=== PATIENT | female | born 2005 | race Two or more races ===

== ENCOUNTER 2024-10-08 21:12 | Observation (INO) | payer MEDICAID, SELFPAY ==
[2024-10-08] VITALS (7 sets, daily range): BP systolic 88–157; BP diastolic 48–89; PULSE 80–104; RESP 18–100; TEMP 36.9; BMI 45.4
[2024-10-08 22:07] LABS: Collection Type, Urine Clean Catch
[2024-10-08 22:08] LABS: Basophils % (Auto) 0 % (0-2.5); Eosinophils # (Auto) 0.1 Thou/mm3 (0.0-0.5); Eosinophils % (Auto) 1 % (0-10); Hematocrit 30.4 % (36.0-46.0); Hemoglobin 10.3 g/dL (12.0-16.0); Immature Granulocytes % (Auto) 1 % (0-0); Immature Granulocytes Auto 0.05 Thou/mm3 (0.00-0.00); Lymphocytes # (Auto) 1.4 Thou/mm3 (1.0-4.8); Lymphocytes % (Auto) 16 % (10-50); Mean Corpuscular HGB Conc 33.9 g/dl (31.0-37.0); Mean Corpuscular Hemoglobin 28.1 pg (25.0-35.0); Mean Corpuscular Volume 83 fL (80-100); Monocytes # (Auto) 0.8 Thou/mm3 (0.0-0.8); Monocytes % (Auto) 10 % (0-12); Neutrophils # (Auto) 6.1 Thou/mm3 (1.8-7.7); Neutrophils % (Auto) 73 % (37-80); Nucleated Red Blood Cell % 0 /100 WBC (0); Platelet Count 285 Thou/mm3 (140-440); RDW Standard Deviation 44.7 fL (36.4-46.3); Red Blood Count 3.66 Miln/mm3 (4.00-5.20); White Blood Count 8.4 Thou/mm3 (3.6-11.0)
[2024-10-08 22:11] LABS: Bilirubin,Urine Negative (Negative); Blood,Urine 1+ (Negative); Clarity,Urine Turbid (Clear/Hazy); Color,Urine Lt-Yellow (Lt Yel-Yel); Glucose, Urine Negative (Negative); Ketones,Urine Negative (Negative); Leukocyte Esterase,Urine Negative (Negative); Nitrite,Urine Negative (Negative); Protein,Urine Negative (Neg - Trace); RBC,Urine 40 /hpf (0-3); Specific Gravity,Urine 1.014 (1.001-1.035); Squamous Epithelial Cell,Urine 5 /hpf (0-5); Urobilinogen,Urine Negative mg/dL (0.0-1.0); WBC,Urine 3 /hpf (0-5)
[2024-10-08 22:25] LABS: Fibrinogen 446 mg/dL (175-375); INR 0.9 (0.9-1.3); Prothrombin Time 9.9 Seconds (9.0-12.2)
[2024-10-08 22:34] LABS: Alanine Aminotransferase 14 U/L (10-49); Albumin, Serum 3.5 gm/dL (3.5-5.0); Albumin/Globulin Ratio 1.5 (1.2-2.2); Alkaline Phosphatase 139 U/L (46-116); Anion Gap 11 (7-16); Aspartate Amino Transferase 13 U/L (0-34); BUN/Creatinine Ratio 16 Ratio (12-20); Bilirubin,Total 0.3 mg/dL (0.3-1.2); Blood Urea Nitrogen 8 mg/dL (9-23); Calcium (Corrected) 9.4 mg/dL (8.5-10.1); Carbon Dioxide 20.5 mMol/L (20.0-31.0); Chloride 108 mMol/L (98-107); Creatinine (Component) 0.5 mg/dL (0.6-1.3); Estimated Creatinine Clearance 211.1 mL/min (>60); Globulin 2.3 gm/dL (2.3-3.5); Glucose 101 mg/dL (74-106); Osmolality,Calculated 275 (275-295); Potassium 3.2 mMol/L (3.4-5.1); Sodium 139 mMol/L (136-145); Total Protein 5.8 gm/dL (5.7-8.2); Uric Acid 3.8 mg/dL (3.1-7.8); eGFR > 60 See Note
== END 2024-10-08 23:00 | disposition home or self-care (01) ==
PROVIDERS: Admitting Provider Student in an Organized Health Care Education/Training Program; Visit Provider Student in an Organized Health Care Education/Training Program
DX: O26.893 Other specified pregnancy related conditions, third trimester (principal); Z3A.36 36 weeks gestation of pregnancy; R03.0 Elevated blood-pressure reading, without diagnosis of hypertension
CPT/HCPCS: 36415; 59899; 80053; 81001; 84550; 85025; 85384; 85610; 85730; G0378

== ENCOUNTER 2024-10-11 14:12 | Observation (INO) | payer MEDICAID, SELFPAY ==
[2024-10-11] VITALS (24 sets, daily range): BP systolic 105–129; BP diastolic 56–67; PULSE 77–102; RESP 18–99; TEMP 36.8; O2SAT 96–98; BMI 44.9
[2024-10-11 15:44] LABS: Basophils % (Auto) 0 % (0-2.5); Eosinophils % (Auto) 0 % (0-10); Hematocrit 31.5 % (36.0-46.0); Hemoglobin 10.7 g/dL (12.0-16.0); Immature Granulocytes % (Auto) 1 % (0-0); Immature Granulocytes Auto 0.05 Thou/mm3 (0.00-0.00); Lymphocytes # (Auto) 1.2 Thou/mm3 (1.0-4.8); Lymphocytes % (Auto) 13 % (10-50); Mean Corpuscular Hemoglobin 28.3 pg (25.0-35.0); Mean Corpuscular Volume 83 fL (80-100); Monocytes # (Auto) 0.8 Thou/mm3 (0.0-0.8); Monocytes % (Auto) 9 % (0-12); Neutrophils # (Auto) 6.9 Thou/mm3 (1.8-7.7); Neutrophils % (Auto) 77 % (37-80); Nucleated Red Blood Cell % 0 /100 WBC (0); Platelet Count 285 Thou/mm3 (140-440); RDW Standard Deviation 44.3 fL (36.4-46.3); Red Blood Count 3.78 Miln/mm3 (4.00-5.20); White Blood Count 8.9 Thou/mm3 (3.6-11.0)
[2024-10-11 15:57] LABS: Creatinine,Random Urine 70 mg/dL (30-125); Protein Total, Random Urine 19 mg/dL (1-14)
[2024-10-11 16:05] LABS: Alanine Aminotransferase 11 U/L (10-49); Albumin, Serum 3.6 gm/dL (3.5-5.0); Albumin/Globulin Ratio 1.5 (1.2-2.2); Alkaline Phosphatase 144 U/L (46-116); Anion Gap 10 (7-16); Aspartate Amino Transferase 14 U/L (0-34); BUN/Creatinine Ratio 18 Ratio (12-20); Bilirubin,Total 0.4 mg/dL (0.3-1.2); Blood Urea Nitrogen 7 mg/dL (9-23); Calcium 9.4 mg/dL (8.3-10.6); Calcium (Corrected) 9.7 mg/dL (8.5-10.1); Carbon Dioxide 22.5 mMol/L (20.0-31.0); Chloride 108 mMol/L (98-107); Creatinine (Component) 0.4 mg/dL (0.6-1.3); Estimated Creatinine Clearance 262.3 mL/min (>60); Globulin 2.4 gm/dL (2.3-3.5); Glucose 88 mg/dL (74-106); LDH (Lactate Dehydrogenase) 171 U/L (120-246); Osmolality,Calculated 276 (275-295); Potassium 3.2 mMol/L (3.4-5.1); Sodium 140 mMol/L (136-145); Uric Acid 3.7 mg/dL (3.1-7.8); eGFR > 60 See Note
[2024-10-11 17:00] LABS: Fibrinogen 455 mg/dL (175-375); INR 0.9 (0.9-1.3); Partial Thromboplastin Time 25.2 Seconds (22.0-36.0)
== END 2024-10-11 17:40 | disposition home or self-care (01) ==
PROVIDERS: Admitting Provider Student in an Organized Health Care Education/Training Program; Visit Provider Student in an Organized Health Care Education/Training Program
DX: O26.893 Other specified pregnancy related conditions, third trimester (principal); R03.0 Elevated blood-pressure reading, without diagnosis of hypertension; Z3A.36 36 weeks gestation of pregnancy
CPT/HCPCS: 36415; 59025; 59899; 80053; 82570; 83615; 84156; 84550; 85025; 85384; 85610; 85730

== ENCOUNTER 2024-10-16 13:59 | Outpatient (CLI) | payer MEDICAID, SELFPAY ==
[2024-10-16] VITALS (9 sets, daily range): BP systolic 111–118; BP diastolic 57–63; PULSE 76–90; RESP 18–97; TEMP 37.2; O2SAT 97–98; BMI 44.8
== END 2024-10-16 14:58 | disposition home or self-care (01) ==
LOC: S4S1 14:02 → S4SX 14:02
PROVIDERS: Referring Provider Student in an Organized Health Care Education/Training Program; Visit Provider Student in an Organized Health Care Education/Training Program
DX: Z34.83 Encounter for supervision of other normal pregnancy, third trimester (principal); Z36.89 Encounter for other specified antenatal screening; Z3A.37 37 weeks gestation of pregnancy
CPT/HCPCS: 59025

== ENCOUNTER 2024-10-19 14:07 | Outpatient (CLI) | payer MEDICAID, SELFPAY ==
[2024-10-19] VITALS (14 sets, daily range): BP systolic 97–120; BP diastolic 53–72; PULSE 80–99; RESP 20–97; TEMP 36.4; O2SAT 86–98; BMI 44.9
[2024-10-19 14:59] LABS: Collection Type, Urine Clean Catch
--- NOTE | 2024-10-19 15:05 | PD.LDTRIAGE2 ---
Documentation for date of: 10/19/24 Hx History Provider: Mamadou Lemus Attending Provider: Mamadou Lemus : 2 Term: 1 : 0 Number of Living Children: 1 Abortions: Spontaneous & Elective: 0 # of Vaginal Deliveries:: 0 Hx Section: Yes Hx Vaginal Delivery Post : No Gestation Info Final BHAVANA: 11/15/24 Gestational Age (weeks): 35 Gestational Age (days): 4 Complaint Complaint Complaint: DENIES HEADACHES, NO VISUAL CHANGES OR EPIGASTRIC DISTRESS Medical History Medical History Medical History: NO HX OF DIABETES OR HEART DISEASE insurance marketing rep Systems Assessment Systems Assessment Systems With in Normal Limits: Yes (NO EXCEPTION) Contractions Evaluation Contractions Contraction Frequency: OCCASIONAL Contraction Duration: 20 SECONDS Resting Tone Palpate: Soft Vaginal Bleeding Vaginal Bleeding Amount: None Heart Monitoring Heart Rate Assessment Monitor Mode: External FHR Baseline: 135 Variability: Moderate Accelerations: 15x15 FHR Pattern Category: Category l Movement Reported: Yes NST Reactive: Yes WNL for GA: No Assessment Comment: REACTIVE NST PATTERN Social risk screen Social Risk Screening Observed or verbalized signs of abuse or neglect: No Head Up Operator Helper Referral: No
[2024-10-19 15:09] LABS: Bilirubin,Urine Negative (Negative); Blood,Urine 2+ (Negative); Clarity,Urine Turbid (Clear/Hazy); Color,Urine Lt-Yellow (Lt Yel-Yel); Glucose, Urine Negative (Negative); Ketones,Urine 2+ (Negative); Leukocyte Esterase,Urine Positive (Negative); Nitrite,Urine Negative (Negative); Protein,Urine Trace (Neg - Trace); RBC,Urine 164 /hpf (0-3); Specific Gravity,Urine 1.021 (1.001-1.035); Squamous Epithelial Cell,Urine 19 /hpf (0-5); Urobilinogen,Urine Negative mg/dL (0.0-1.0); WBC,Urine 7 /hpf (0-5)
--- NOTE | 2024-10-19 15:09 | PC.NURSE ---
1506 dc instructions reviewed, labor precautions, preeclampsia precautions, kick counts, copies given, pt agrees/understands.
== END 2024-10-19 15:07 | disposition home or self-care (01) ==
LOC: S4S1 14:12 → S4SX 14:13
PROVIDERS: Referring Provider Obstetrics & Gynecology; Visit Provider Obstetrics & Gynecology
DX: O26.893 Other specified pregnancy related conditions, third trimester (principal); Z3A.37 37 weeks gestation of pregnancy; R03.0 Elevated blood-pressure reading, without diagnosis of hypertension
CPT/HCPCS: 59025; 81001

== ENCOUNTER 2024-10-22 02:12 | Inpatient (IN) | payer MEDICAID, SELFPAY ==
[2024-10-22] VITALS (17 sets, daily range): BP systolic 109–133; BP diastolic 61–89; PULSE 66–113; RESP 16–98; TEMP 36.1–36.8; O2SAT 97–100; BMI 27.3
--- NOTE | 2024-10-22 02:44 | XR_ITS ---
Examination: Complete OB ultrasound greater than 14 weeks Date and time of exam: October 22, 2024 at 0315 hrs. Indications: Patient fell October 21, 2024 with injury to the pelvis Findings: Viable intrauterine single fetus with single amniotic sac presentation cephalic Cardiac motion 160 BPM Placenta anterior fundal grade 3 Umbilical cord insertion 3 vessel seen Amniotic fluid index 3.6 cm spine anterior Ovaries obscured by the fetus. Composite estimated gestational age based on BPD, head circumference, abdominal circumference, femur length is 38 weeks 0 days Estimated weight 3387 g. Survey of intracranial anatomy, spinal anatomy, abdominal anatomy, four-chamber heart performed with no abnormalities identified. Impression: Viable intrauterine gestation cephalic presentation.
[2024-10-22] MEDS: RINGERS LACTATED 1000 ML 1,000 ML 999 ML IV (03:00)
[2024-10-22 03:04] LABS: Basophils % (Auto) 0 % (0-2.5); Eosinophils % (Auto) 0 % (0-10); Hematocrit 33.6 % (36.0-46.0); Hemoglobin 11.2 g/dL (12.0-16.0); Immature Granulocytes % (Auto) 1 % (0-0); Immature Granulocytes Auto 0.07 Thou/mm3 (0.00-0.00); Lymphocytes # (Auto) 1.6 Thou/mm3 (1.0-4.8); Lymphocytes % (Auto) 17 % (10-50); Mean Corpuscular HGB Conc 33.3 g/dl (31.0-37.0); Mean Corpuscular Hemoglobin 27.9 pg (25.0-35.0); Mean Corpuscular Volume 84 fL (80-100); Monocytes # (Auto) 0.9 Thou/mm3 (0.0-0.8); Monocytes % (Auto) 10 % (0-12); Neutrophils # (Auto) 6.7 Thou/mm3 (1.8-7.7); Neutrophils % (Auto) 72 % (37-80); Nucleated Red Blood Cell % 0 /100 WBC (0); Platelet Count 277 Thou/mm3 (140-440); RDW Standard Deviation 45.1 fL (36.4-46.3); Red Blood Count 4.02 Miln/mm3 (4.00-5.20); White Blood Count 9.3 Thou/mm3 (3.6-11.0)
[2024-10-22 05:11] LABS: ROM Kit Lot # 57807112
[2024-10-22 05:12] LABS: ROM Swab Mixed By: DAVIH1; Rupture of Fetal Membranes Positive (Negative); Swb Mxed in Solvent 1 min? Yes
--- NOTE | 2024-10-22 05:54 | PD.LDHP ---
Documentation for date of: 10/22/24 OB Labor/Induct. HPI History of Present Illness : 2 Term pregnancies: 1 pregnancies: 0 Living children: 1 History of Abortions: Spontaneous and Elective: 0 History of sections: Yes (2021) History of : No BHAVANA: 11/05/24 Gestational Age (weeks): 38 Gestational Age (days): 0 History of present illness: 19 yo IUP 38 weeks labor pains and leaking. Prior C/S. Amniosure positive. JUSTIN 4.7. Desires repeat C/S. PNC at [facility]. History of Present Adequate Care: Yes Labs Labs: Negative: Hepatitis B, HIV, Chlamydia, Gonorrhea and Group Beta Strep Review of Systems Review of Systems Narrative Review of Systems: Denies any chest pain, palpitations, shortness of breath or lower ext. pain or swelling. Past Medical History Family History OTHER FAMILY HX: Denies Surgical History SURGICAL: Positive Section (2021) OTHER SURGICAL HX: right breast excision of fibroadenoma 2023, C section 2021 Social History SOCIAL: Denies alcohol, drug use or smoking. Meds Home Medications and Allergies Home Medications ?Medication ?Instructions ?Recorded ?Confirmed ?Type vit no.95-ferrous 1 tab PO .q day 10/16/24 10/22/24 History fumarate 28 mg-folic acid 800 mcg tablet () Allergies Allergy/AdvReac Type Severity Reaction Status Date / Time No Known Allergies Allergy Verified 10/22/24 02:29 OB Exam Physical Exam Vital signs: Temp Pulse Resp BP 97.6 F 98 18 133/86 H 10/22/24 02:32 10/22/24 05:37 10/22/24 02:28 10/22/24 05:37 Routine Respiratory Exam Comments: CTA B/L Routine Cardiovascular Exam Comments: RRR Routine Abdominal Exam Comments: Gravid , term size, old pfanensteil scar noted. Routine Extremities Exam Comments: Non tender or edema. OB Results Labs 10/22/24 02:50 Labs: Short CBC 10/22/24 Range/Units 02:50 WBC 9.3 (3.6-11.0) Thou/mm3 Hgb 11.2 L (12.0-16.0) g/dL Hct 33.6 L (36.0-46.0) % Plt Count 277 (140-440) Thou/mm3 Impressions Impression: IUP 38w0d. Labor SROM Oligohydramnions Prior C/S\ Desires Repeat C/S Informed consent obtained , she was made aware of the risks, complications, alternatives and benefits of the proposed procedure and she agrees.
[2024-10-22] MEDS: ceFAZolin/D5W 2 GM IV 2 GM/100 ML BAG IV (05:58)
[2024-10-22] MEDS: METOCLOPRAMIDE INJ 5 MG/ML VIAL 2 ML 10 MG IVP (05:59)
[2024-10-22] MEDS: FAMOTIDINE INJ 10 MG/ML VIAL 2 ML 20 MG IV (05:59)
[2024-10-22 07:03] LABS: Syphilis Nonreactive (Nonreactive)
--- NOTE | 2024-10-22 07:03 | PRELIM_ITS ---
Obstetric ultrasound. October 22, 2024 0315 hours Clinical history: hx of fall 10/21/24 Comparison: No prior study is available for comparison. Findings: There is a gravid uterus with a live fetus in cephalic presentation of mean gestational age 38 weeks and 0 days (by biometry). cardiac activity is present at a heart rate of 160 beats per minute. The placenta is in anterior fundal location, maturity grade 3. There is no evidence of placenta previa or retroplacental hemorrhage. Amniotic fluid is adequate (JUSTIN = 3.6cm). Estimated weight is 3387 grams+/- 501 grams. Estimated due date by ultrasound is 11/05/2024. Impression: Gravid uterus with a single live fetus in cephalic presentation of mean gestational age 38 weeks 0 days. Other findings as described above. Report Electronically Signed By: Dutch Michelle 10/22/2024 7:03:09 AM [EST]
[2024-10-22] MEDS: OXYTOCIN in NS 20 units 20 UNIT/1,000 ML BAG 125 UNIT IV ×2 (07:35→16:06)
--- NOTE | 2024-10-22 07:39 | PD.LDDS ---
DS: Providers Provider Date of admission: 10/22/24 05:13 Primary care physician: Mamadou Lemus MD Admitting Provider: Amandeep Tony MD Attending Provider on Admission: Amandeep Tony MD Consults: 10/22/24 07:28 Referral Routine Comment: Attending Provider on DC: Amandeep Tony MD Discharging Provider: Amandeep Tony MD DS: Diagnosis Discharge Diagnosis (1) Oligohydramnios delivered: Status: Acute (2) delivery delivered: Status: Acute (3) Endometriosis: Status: Acute Problem List Completed Was Problem List Reviewed/Reconciled?: Yes Summary/Hosp Course Peripartum Data Delivery Method: Low Transverse Procedures: Procedures Operation Date: 10/22/24 06:30 <No data on this case meets the specified criteria> 1: Gender: Male Time Spent with Patient Time attestation: Total time spent providing and/or coordinating discharge services: Exam Vital Signs Temp Pulse Resp BP 97.6 F 98 18 133/86 H 10/22/24 02:32 10/22/24 05:37 10/22/24 02:28 10/22/24 05:37 Discharge Plan Plan Patient Disposition: HOME (Self Care) Patient condition on transfer: Stable Prescriptions/Referrals Prescriptions/Med Rec: New hydrocodone-acetaminophen 5-325 mg tablet 1 tab PO Q6H MDD 4 PRN (Reason: pain) Qty: 20 0RF ibuprofen 600 mg tablet 600 mg PO Q6H PRN (Reason: pain) Qty: 30 0RF No Action PNV cmb#95-ferrous fumarate-FA [] 28 mg iron- 800 mcg tablet 1 tab PO .q day Referrals: Mamadou Lemus MD [Primary Care Provider] - Patient/Caregiver Discharge Instructions Discharge Activity: activity as tolerated Other Discharge Activity Instructions:: Follow up office in [address] [facility] Education Materials: C Section Dc Print Language: Pashto Stand Alone Forms: Renetta Award Info., Patient Portal Info Letter Planned Discharge Date 10/24/24
--- NOTE | 2024-10-22 07:40 | OBDSUM_ITS ---
Data (Johnson) Data Hx Section: Yes (2021) : 2 Para: 1 Term: 1 : 0 : 0 Delivery Data (Johnson) Labor Data ROM Date: 10/22/24 ROM Time: 04:49 Rupture Type: SROM Amniotic Fluid: Clear Delivery Data EDC: 11/05/24 EDC calculated by:: LMP/early US confirmation Labor Onset Stage 1 Date: 10/22/24 Labor Onset Stage 1 Time: 04:49 Labor Onset Stage 2 Date: 10/22/24 Labor Onset Stage 2 Time: 04:49 Delivery Date: 10/22/24 Delivery Time: 06:34 Gestational age (weeks): 38 Gestational age (days): 0 Placenta Delivery Date: 10/22/24 Placenta Delivery Time: 06:35 Delivered by: Amandeep Tony Delivery nurse: Taina Mojica Other staff at delivery: Nursery Nurse Other staff at delivery: Michelle Manjarrez Delivery Method Delivery: Delivery Type: Repeat Presentation: Vertex Position: OT Anesthesia Type Primary Anesthesia: Spinal Placenta Placenta Delivery: Manual Placenta Cultures Obtained: No Placenta Sent for Examination: No Cord Sample: Cord Blood Obtained EBL Estimated blood loss (ml): 800 Umbilical Cord Nuchal Cord: x1 Additional Procedures None Complications Complications: None [place] Data (Johnson) [place] Data Gender: Male Weight Grams: 3540 1 Minute Total: 8 5 Minute Total: 9
[2024-10-22] MEDS: KETOROLAC INJ 30 MG/ML VIAL IVP ×2 (10:24→17:40)
--- NOTE | 2024-10-22 10:24 | ESOP_ITS ---
RE: ROC BHAKTA : 2005 DATE OF OPERATION: 10/22/2024 PREOPERATIVE DIAGNOSES: 1. Intrauterine at 38 weeks. 2. Previous delivery. 3. Early labor. 4. Oligohydramnios. 5. Spontaneous rupture of membranes. POSTOPERATIVE DIAGNOSES: 1. Intrauterine at 38 weeks. 2. Previous delivery. 3. Early labor. 4. Oligohydramnios. 5. Spontaneous rupture of membranes. 6. Endometriosis. PROCEDURE PERFORMED: A repeat low transverse section via Pfannenstiel skin incision. SURGEON: Amandeep Tony DO SPECIAL EFFECTS PERSON: GATO Armas ANESTHESIA: Spinal. ANESTHESIOLOGIST: Cholo Mojica CRNA ESTIMATED BLOOD LOSS: 800 mL. COMPLICATIONS: None. COUNTS: Correct. PATHOLOGY: None. FINDINGS: A live male infant, cephalic presentation, nuchal cord, no amniotic fluid. Apgars, see RN notes. Placenta removed complete and intact. Endometriotic implants on the posterior uterosacral ligaments, ovaries, and the rest of the uterus appeared grossly within normal limits. DESCRIPTION OF PROCEDURE: After proper informed consent was obtained and the patient was made aware of the risks, complications, alternatives, and benefits of the proposed procedure, she was taken to the operating room where she underwent induction of spinal anesthesia. She was prepped and draped in the usual sterile fashion. A timeout was performed. A Pfannenstiel skin incision was made with the scalpel, carried through to the underlying layer of fascia with the Bovie. The fascia was nicked in the midline. The incision extended bilaterally with the Bovie. The inferior aspect of the fascial incision was grasped with José Manuel clamps, elevated. The underlying rectus muscles were dissected off with the Bovie. The rectus muscles were in the midline. The peritoneum entered sharply with the Metzenbaum scissors. The incision was extended superiorly and inferiorly with good visualization of the bladder. The bladder blade was then inserted. The vesicouterine peritoneum was incised transversely, a bladder flap created digitally. The bladder blade was reinserted. The lower uterine segment was incised in transverse fashion with the scalpel. The incision was extended bilaterally digitally. The infant's head delivered. The mouth and nose were suctioned with the bulb suction. The nuchal cord was reduced. The shoulder and body delivered atraumatically. The cord was clamped and cut. The sent off to the waiting pediatric staff. Cord blood and gases were sent. The placenta was then removed manually. The uterus was exteriorized and cleared of all clots and debris. The uterine incision was repaired with #1-0 chromic catgut suture in a running locking fashion. A second layer of same suture was used to imbricate the first layer and obtained excellent hemostasis. The vesicouterine peritoneum was closed with 2-0 chromic catgut suture in a running fashion. The uterus was firm. It was returned to the abdomen. The gutters were cleared of all clots and debris. The peritoneum was closed with #0 chromic catgut suture in a running fashion. The muscle was closed with #0 chromic catgut suture in running fashion. The fascia was closed with #0 Vicryl beginning at each angle and ending in center in a running fashion. Subcutaneous tissue was irrigated with normal saline solution and found to be hemostatic and closed with 2-0 chromic catgut suture in a running fashion. The skin was closed with 4-0 Monocryl. A Dermabond Prineo dressing was applied. A sterile pressure dressing was applied. She tolerated the procedure well. Counts were correct. I discussed with the patient the nature of her condition, the intraoperative findings, expectation for recovery. All questions were answered. DT: 07:38:35 TT: 10:23:00 Ref: [id number] - TID: [id number]
[2024-10-22 12:38] LABS: Basophils % (Auto) 0 % (0-2.5); Eosinophils % (Auto) 0 % (0-10); Hematocrit 32.5 % (36.0-46.0); Hemoglobin 10.9 g/dL (12.0-16.0); Immature Granulocytes % (Auto) 1 % (0-0); Immature Granulocytes Auto 0.08 Thou/mm3 (0.00-0.00); Lymphocytes # (Auto) 1.5 Thou/mm3 (1.0-4.8); Lymphocytes % (Auto) 11 % (10-50); Mean Corpuscular HGB Conc 33.5 g/dl (31.0-37.0); Mean Corpuscular Hemoglobin 28.8 pg (25.0-35.0); Mean Corpuscular Volume 86 fL (80-100); Monocytes % (Auto) 7 % (0-12); Neutrophils # (Auto) 11.1 Thou/mm3 (1.8-7.7); Neutrophils % (Auto) 81 % (37-80); Nucleated Red Blood Cell % 0 /100 WBC (0); Platelet Count 220 Thou/mm3 (140-440); RDW Standard Deviation 46.2 fL (36.4-46.3); Red Blood Count 3.79 Miln/mm3 (4.00-5.20); White Blood Count 13.7 Thou/mm3 (3.6-11.0)
[2024-10-23 00:25] VITALS: BP 113/74; PULSE 90; RESP 24; TEMP 36.8; O2SAT 95
[2024-10-23 04:20] VITALS: BP 112/73; PULSE 78; RESP 22; TEMP 36.8; O2SAT 97
[2024-10-23] MEDS: IBUPROFEN TAB 400 MG TABLET 800 MG PO ×2 (04:43→13:40)
[2024-10-23 07:50] VITALS: BP 114/77; PULSE 92; RESP 18; TEMP 36.9; O2SAT 97
[2024-10-23] MEDS: DOCUSATE SOD 100 MG CAPSULE PO (08:42)
--- NOTE | 2024-10-23 09:21 | PD.LDPPPRG ---
Subjective Subjective Interval history: Delivery type: Patient doing well this morning. No acute complaints. Ambulating, tolerating p.o. and voiding without difficulty. HTN/Pre-Eclampsia screen: No chest pain, shortness of breath, headache, visual changes, epigastric or right upper quadrant pain. Breast-feeding, lochia diminishing. Bowel: Flatus+/ BM+ Exam Vital Signs Temp Pulse Resp BP Pulse Ox O2 Del Method 98.4 F 92 18 114/77 97 Room Air 10/23/24 07:50 10/23/24 07:50 10/23/24 07:50 10/23/24 07:50 10/23/24 07:50 10/23/24 07:50 Constitutional Constitutional: no acute distress Routine HEENT Exam Head: Present normocephalic and atraumatic Eye: Present EOMI and PERRL ENT: Present mucous membranes moist Routine Neck Exam Neck: Present supple and trachea midline Routine Respiratory Exam Respiratory: Present chest non-tender, lungs clear, normal breath sounds and no resp distress Routine Cardiovascular Exam Cardiovascular: Present RRR Routine Abdominal Exam Abdominal: Present soft and normoactive bowel sounds Routine Extremities Exam Extremities: Present full ROM Routine Skin Exam Skin: Present intact, dry and warm Routine Neurological Exam Neurological: Present alert, oriented X3 and CN II-XII intact Routine Psychiatric Exam Psychiatric: Present normal affect and normal thought process Objective Labs 10/22/24 11:50 Labs: Laboratory Results - last 24 hr 10/22/24 11:50 WBC 13.7 H D RBC 3.79 L Hgb 10.9 L Hct 32.5 L MCV 86 MCH 28.8 MCHC 33.5 RDW Std Deviation 46.2 Plt Count 220 D Neut % (Auto) 81 H Lymph % (Auto) 11 [place] % (Auto) 7 Eos % (Auto) 0 Baso % (Auto) 0 Neut # (Auto) 11.1 H Lymph # (Auto) 1.5 [place] # (Auto) 1.0 H Eos # (Auto) 0.0 Baso # (Auto) 0.0 Immature Gran # (Auto) 0.08 H Absolute Nucleated RBC 0.00 Immature Gran % 1 H Nucleated RBC % 0 Assessment & Plan Problem List (1) Oligohydramnios delivered: Status: Acute (2) delivery delivered: Status: Acute Assessment and plan: 1. Continue routine /post-op care 2. Labs reviewed, cbc appropriate 3. Remove dressing/Spencer 4. Encourage to ambulate, shower 5. Encourage PO intake, breast feeding (3) Endometriosis: Status: Acute Time Spent With Patient Time: Total time spent is greater than 50% in coordination of care (as documented) at patient's floor/unit and/or counseling patient:
[2024-10-23 12:00] VITALS: BP 126/85; PULSE 96; RESP 18; TEMP 36.8; O2SAT 97
[2024-10-23 20:39] VITALS: BP 106/72; PULSE 89; RESP 19; TEMP 36.7; O2SAT 97
[2024-10-23] MEDS: ACETAMINOPHEN 325 MG TABLET 650 MG PO (21:20)
[2024-10-24] MEDS: IBUPROFEN TAB 400 MG TABLET 800 MG PO ×2 (01:20→11:01)
[2024-10-24] MEDS: SIMETHICONE 80 MG CHEW PO (01:20)
[2024-10-24 05:09] VITALS: BP 118/73; PULSE 87; RESP 17; TEMP 36.4; O2SAT 98
[2024-10-24 07:36] VITALS: BP 130/83; PULSE 83; RESP 20; TEMP 36.6; O2SAT 97
--- NOTE | 2024-10-24 08:06 | PD.LDPPPRG ---
Subjective Subjective Interval history: Patient is a 19-year-old -0-0-2 postop day #2 status post repeat by Dr Tony. Patient is doing well. She is sitting up pumping breastmilk. She states she cannot latch the baby well as she has flat nipples. She has tried nipple sandhu and this does not work. Patient's pain is controlled her bleeding is minimal she is tolerating a general diet the father the baby is at bedside. Exam Vital Signs Temp Pulse Resp BP Pulse Ox O2 Del Method 97.9 F 83 20 130/83 97 Room Air 10/24/24 07:36 10/24/24 07:36 10/24/24 07:36 10/24/24 07:36 10/24/24 07:36 10/24/24 07:36 Narrative Exam Patient is alert and oriented x 3 she is appears tired but no apparent distress sitting up in a chair pumping breastmilk. Abdomen fundus is firm nontender incisions clean dry and intact extremities show no erythema and no significant edema of her lower extremities Objective Labs 10/22/24 11:50 Assessment & Plan Problem List (1) Oligohydramnios delivered: Status: Acute (2) delivery delivered: Problem details: Discharge home. Discharge instructions given. Follow-up in 1 to 2 weeks for a incision check. Status: Acute (3) Endometriosis: Status: Acute Time Spent With Patient Time: Total time spent is greater than 50% in coordination of care (as documented) at patient's floor/unit and/or counseling patient: Time with patient: less than 15 minutes
--- NOTE | 2024-10-24 08:10 | ESDS_ITS ---
DS: Providers Provider Date of admission: 10/22/24 05:13 Primary care physician: Mamadou Lemus MD Admitting Provider: Amandeep Tony MD Attending Provider on Admission: Solomon Lei MD Consults: 10/22/24 07:28 Referral Routine Comment: Attending Provider on DC: Lorena [facility] ([facility]) Discharging Provider: Lorena Washington MD ([facility]) Anticipated date of discharge: 10/24/24 DS: Diagnosis Discharge Diagnosis (1) delivery delivered: Status: Acute Assessment & Plan: Patient discharged home postoperative day #2 in stable condition Problem List Completed Was Problem List Reviewed/Reconciled?: Yes Summary/Hosp Course Brief History: 19 yo IUP 38 weeks labor pains and leaking. Prior C/S. Amniosure positive. JUSTIN 4.7. Desires repeat C/S. PNC at [facility]. Peripartum Data Delivery Method: Low Transverse Procedures: Procedures Operation Date: 10/22/24 06:30 Actual Procedure Side Surgeon p in OB Amandeep Tony MD complications: none Status at Discharge Cognitive/behavioral status at discharge: Patient is alert and oriented x 3 in no apparent distress Functional status at discharge: independent ambulation Overall status at discharge: patient is progressing back to baseline Time Spent with Patient Time attestation: Total time spent providing and/or coordinating discharge services: Time spent: Less than 30 minutes Specific discharge activities: Call for heavy vaginal bleeding, fevers 101F or higher. Severe depression. Follow-up in clinic in 1 to 2 weeks. Exam Vital Signs Temp Pulse Resp BP Pulse Ox O2 Del Method 97.9 F 83 20 130/83 97 Room Air 10/24/24 07:36 10/24/24 07:36 10/24/24 07:36 10/24/24 07:36 10/24/24 07:36 10/24/24 07:36 Narrative Exam Abdomen soft nontender fundus firm incision clean dry and intact extremities show no significant edema or erythema bilaterally Discharge Plan Plan Patient Disposition: HOME (Self Care) Disposition Comment: Stable Patient condition on transfer: Stable Prescriptions/Referrals Prescriptions/Med Rec: New hydrocodone-acetaminophen 5-325 mg tablet 1 tab PO Q6H MDD 4 PRN (Reason: pain) Qty: 20 0RF ibuprofen 600 mg tablet 600 mg PO Q6H PRN (Reason: pain) Qty: 30 0RF No Action PNV cmb#95-ferrous fumarate-FA [] 28 mg iron- 800 mcg tablet 1 tab PO .q day Referrals: Mamadou Lemus MD [Primary Care Provider] - Patient/Caregiver Discharge Instructions Discharge Activity: activity as tolerated Other Discharge Activity Instructions:: Follow up office in 1 week with [facility], no heavy lifting and intercourse tampons douching for 6 weeks. Other Discharge Diet Instructions: General Diet Education Materials: Breast Care After , : Caring for Yourself, C Section Dc Print Language: Hebrew Activity Restrictions/Additional Instructions: Call for heavy vaginal bleeding signs of depression or fevers. Stand Alone Forms: Renetta Award Info., Patient Portal Info Letter Discharge Order Discharge Orders: Discharge (Routine); Ordered 10/24/24 Ordered By: Lorena [facility] ([facility]) Planned Discharge Date 10/24/24
[2024-10-24] MEDS: DOCUSATE SOD 100 MG CAPSULE PO (08:41)
== END 2024-10-24 12:50 | disposition home or self-care (01) | DRG 540 ==
LOC: S4SX 06:20 → S4NX 06:22
PROVIDERS: Admitting Provider Specialist; PCP Student in an Organized Health Care Education/Training Program; Visit Provider Obstetrics & Gynecology
PROC: 10D00Z1 Extraction of Products of Conception, Low, Open Approach (ICD-10-PCS; CPT 59514; principal; 2024-10-22 06:15)
DX: O34.211 Maternal care for low transverse scar from previous cesarean delivery (principal); Z3A.38 38 weeks gestation of pregnancy; Z37.0 Single live birth; O69.81X0 Labor and delivery complicated by cord around neck, without compression, not applicable or unspecified; N80.9 Endometriosis, unspecified; O41.03X0 Oligohydramnios, third trimester, not applicable or unspecified
CPT/HCPCS: 36415; 59025; 76805; 84112; 85025; 86780; 86850; 86900; 86901; A4649; J0689; J1885; J2274; J2371; J2405; J2590; J2765; J3010; J3490; J7120; A9270; J2270